=== PATIENT | female | born 1955 | race Caucasian/White ===

== ENCOUNTER → 2016-06-08 | Outpatient (CLI) | payer OTHER ==
[~2016-06-08] MED LIST: CONRAY-43 43% 50ML VIAL (Q9960) As Ordered ONE
--- NOTE | 2016-06-08 11:59 | REP ---
MR ARTHROGRAM RIGHT SHOULDER: TECHNIQUE: Axial T2 fat sat, coronal oblique T1, T2 fat sat, post arthrogram axial T1 fat sat, proton density, coronal oblique T1 fat sat, T2 sat, sagittal oblique T2 fat sat, ABER T1 fat sat. There is a full thickness incomplete tear of the supraspinatus tendon distally with a gap in the tendon approximately 1 cm. Other rotator cuff tendons appear intact. There are mild hypertrophy degenerative changes of acromioclavicular joint. Biceps tendon is within the bicipital groove without significant tenosynovitis. There is no Hill-Sachs deformity. Deltoid muscle demonstrates no abnormal signal. There is increased signal on T2-weighted images in the region of the biceps labral complex and I suspect at least a partial tear at this location. There also appears to be diffuse fraying of the superior labrum. I do not see any other evidence of a labral tear. There is no bone marrow edema or occult fracture. There is a small joint effusion with fluid extending into the subacromial subdeltoid bursae. There is no paralabral cyst. IMPRESSION: Full thickness incomplete tear supraspinatus tear with a gap in the tendon approximately 1 cm. Mild hypertrophic degenerative changes of acromioclavicular joint. Findings suggesting at least a partial tear at the biceps labral complex as well as diffuse fraying of the superior labrum. Signed by Harley Leos MD 06/09/2016 05:11 P
--- NOTE | 2016-06-09 17:20 | REP ---
Procedure: Right shoulder arthrogram The procedure was performed under the direct supervision of Dr. Leos. History: Right shoulder pain The benefits and risks including but not limited to pain, infection, bleeding and anaphylaxis were explained to the patient and informed consent was obtained. Technique: The right glenohumeral joint space was localized using fluoroscopic guidance. The skin was prepped and draped in a sterile fashion. 1% lidocaine was used as a local anesthetic. Using fluoroscopic guidance a 22 gauge spinal needle was inserted and advanced into the joint. 0.5 ml of Conray 43 was injected to verify placement. 11 ml of a solution containing 20 ml of sterile saline and 0.15 ml of ProHance was injected into the joint. The needle was removed and the patient was taken to MRI for postprocedural imaging. The the patient tolerated the procedure well and there were no immediate complications. 1 second of fluoro time was utilized for this procedure. Reviewed by RUDOLPH Aquino 06/08/2016 10:31 ASigned by Harley Leos MD 06/09/2016 05:07 P
== END | disposition home or self-care (01) ==
LOC: M RADPRO 07:05
PROVIDERS: ATTEND Nurse Practitioner Family
DX: M75.81 Other shoulder lesions, right shoulder (principal); M19.011 Primary osteoarthritis, right shoulder; M75.101 Unspecified rotator cuff tear or rupture of right shoulder, not specified as traumatic
CPT/HCPCS: 23350; 73223; 77002; A9576; Q9960

== ENCOUNTER → 2016-08-17 | Outpatient (CLI) | payer OTHER ==
--- NOTE | 2016-08-19 13:39 | SLEEPCENT ---
DATE OF PROCEDURE: 08/17/2016 ORDERED BY: LYNN Calle Nocturnal polysomnography was performed due to concern for the obstructive sleep apnea syndrome in this patient with a history of excessive somnolence and nonrestorative sleep. 8 hours and 22 minutes of data were reviewed. There were 183 minutes of sleep identified. Sleep latency was short at 4 minutes. Rapid eye movement (REM) latency was short at 67 minutes. Sleep architecture showed some fragmentation and prolonged periods of wake. There were 2 REM periods appreciated, however. The sleep efficiency was quite low at 37%. The patient's EKG showed a sinus rhythm with an average heart rate of 75 beats per minute. Rate variability was seen surrounding respiratory events. Rate ranged 62-90 beats per minute. EEG showed normal waveforms for awake and sleep. No focal events were identified. There were 46 respiratory events identified of 10 seconds in duration or greater for an apnea hypopnea index of 15. The events were not staged nor positionally related. Arousals from respiratory events occurred 9.2 times per hour and oxygen desaturations were seen into the 80s. There was also some limb activity identified. 2 trains of 30 events. Limb movement arousal index was 9.8. IMPRESSION: 1. Obstructive sleep apnea syndrome (G47.33). Apnea hypopnea index 15. 2. Periodic limb movement disorder (G47.61). Limb movement arousal index 9.8. RECOMMENDATION: The patient should be encouraged to return to the sleep disorder center for pressure therapy. In the interim, alcohol and sedative avoidance should be practiced and caution exercised during the operation of motor vehicles. Pending response to pressure therapy, interventions to reduce the frequency arousal from limb activity may also be helpful.
== END ==
LOC: M SLEEP 19:20
PROVIDERS: ATTEND Nurse Practitioner Adult Health
DX: G47.30 Sleep apnea, unspecified (principal)

== ENCOUNTER → 2016-09-03 | Outpatient (CLI) | payer OTHER ==
--- NOTE | 2016-09-06 18:51 | SLEEPCENT ---
DATE OF PROCEDURE: 09/03/2016 REFERRING PHYSICIAN: Conchita Lewis Nocturnal polysomnography was performed for the titration of pressure therapy in this patient with obstructive sleep apnea syndrome, apnea-hypopnea index of 15. For testing, the patient was fit with a ResMed Mirage FX nasal mask of standard size, 4 cm of water pressure applied to the circuit and the lights were extinguished. 7 hours and 17 minutes of data were reviewed. There were only 128 minutes of sleep identified. Sleep latency was normal at 6.5 minutes. Rapid eye movement (REM) latency was quite prolonged at 404 minutes. Sleep architecture was initially good, however, the patient experienced a very prolonged period of wake amid the study resulting in a reduced sleep efficiency of 29.7%. The patient's EKG showed a sinus rhythm with an average heart rate of 63 beats per minute. EEG showed reasonably normal waveforms for awake and sleep. Respiratory events were fully palliated with CPAP at a pressure of +8 with which pressure, the patient slept through REM late in the study without respiratory event or oxygen desaturation. There was some significant limb activity despite the limited time in sleep. Limb movement arousal index was increased over the diagnostic night at 19.1. IMPRESSION: 1. Obstructive sleep apnea syndrome (G47.33). 2. Periodic limb movement disorder (G47.61). RECOMMENDATION: Nightly use of pressure therapy at 8 cm of water should be sufficient to address the patient's respiratory events. Interventions to reduce the frequency of arousal from limb activity may also be helpful.
== END ==
LOC: M SLEEP 20:00
PROVIDERS: ATTEND Nurse Practitioner Adult Health
DX: G47.33 Obstructive sleep apnea (adult) (pediatric) (principal)

== ENCOUNTER 2016-12-24 14:27 | Emergency (ER) | payer OTHER ==
[~2016-12-24] VITALS: Ht 157.5 cm; Wt 70.5 kg
[2016-12-24] MEDS ORDERED: TYLE500T78 PO (14:50)
[2016-12-24] MEDS ORDERED: ASPI81TA85 PO (14:50)
[2016-12-24] MEDS ORDERED: TRAZ50TA11 PO (14:52)
[2016-12-24] MEDS ORDERED: CELE20TA PO (14:52)
[2016-12-24 16:23] LABS: BASO # 0.1 10^3/uL (0.0-0.2); BASO % 0.6 % (0.0-1.0); EOS # 0.2 10^3/uL (0.0-0.50); EOS % 2.1 % (0.0-3.0); IMMATURE GRANULOCYTE % 0.4 % (0-0); LYMPH # 2.5 10^3/uL (1.5-4.5); LYMPH % 31.1 % (24.0-44.0); MEAN CORPUSCULAR HEMOGLOBIN 31.1 pg (27.0-33.0); MEAN CORPUSCULAR HGB CONC 34.3 g/dl (32.0-36.5); MEAN CORPUSCULAR VOLUME 90.6 fl (80.0-96.0); MONO # 0.5 10^3/uL (0.0-0.8); MONO % 5.5 % (0.0-5.0); NEUTROPHILS # 4.9 10^3/uL (1.8-7.7); NEUTROPHILS % 60.3 % (36.0-66.0); PLATELET COUNT, AUTOMATED 299 10^3/uL (150-450); RED CELL DISTRIBUTION WIDTH 12.1 % (11.5-14.5); WHITE BLOOD COUNT 8.2 10^3/uL (4.0-10.0)
[2016-12-24 16:41] LABS: ALBUMIN 3.8 GM/DL (3.2-5.2); ALBUMIN/GLOBULIN RATIO 1.09 (1.00-1.93); ALKALINE PHOSPHATASE 78 U/L (45-117); ALT/SGPT 24 U/L (12-78); ANION GAP 5 MEQ/L (8-16); AST/SGOT 12 U/L (7-37); BILIRUBIN,DIRECT < 0.1 MG/DL (0.0-0.2); BILIRUBIN,TOTAL 0.3 MG/DL (0.2-1.0); BLOOD UREA NITROGEN 11 MG/DL (7-18); CALCIUM LEVEL 9.1 MG/DL (8.8-10.2); CARBON DIOXIDE LEVEL 29 MEQ/L (21-32); CHLORIDE LEVEL 104 MEQ/L (98-107); CREATININE FOR GFR 0.66 MG/DL (0.55-1.02); GLOMERULAR FILTRATION RATE > 60.0 (>45); GLUCOSE, FASTING 113 MG/DL (80-110); SODIUM LEVEL 138 MEQ/L (136-145); TOTAL PROTEIN 7.3 GM/DL (6.4-8.2)
[2016-12-24 17:15] VITALS: BP 125/68
--- NOTE | 2016-12-24 18:20 | REPUSA ---
CLINICAL HISTORY: Pelvic pain. TECHNIQUE: Realtime sonographic images were obtained in multiple projections via TA approach. COMMENTS: The uterus is heterogeneous anteverted measuring 6.3 x 2.6 x 4.2 cm. The endometrial stripe is thicke suzi measuring 7 mm. There is no evidence of free fluid within the pelvic cul-de-sac. Both ovaries are free of solid or cystic mass. There is no evidence for abnormal vascularity. IMPRESSION: No acute pelvic pathology. Patient's pain corresponds to air filled bowel. Consider follow-up with CT. Thank you for your kind referral of this patient.
--- NOTE | 2016-12-25 09:30 | ED PDOC ---
Post-Departure Follow-Up pelvic us faxed to dr adams, flora watkins for follow up. Yrn Foster MD Dec 25, 2016 09:30
== END 2016-12-24 19:05 | disposition home or self-care (01) ==
LOC: M ED 14:27
DX: R10.9 Unspecified abdominal pain (principal); Z72.0 Tobacco use

== ENCOUNTER → 2017-04-25 | Outpatient (CLI) | payer OTHER | LOC: M RAD 09:59 | DX: Z12.31 Encounter for screening mammogram for malignant neoplasm of breast (principal) ==

== ENCOUNTER 2017-05-18 07:52 | Day surgery (SDC) | payer OTHER ==
[2017-05-18] MEDS: NS 1,000 ML IV (08:13)
[2017-05-18] MEDS ORDERED: LIDOCAINE 2% INJ 100 MG/5 ML SDV (FOR ANES.) As Ordered (09:25)
[2017-05-18] MEDS ORDERED: PROPOFOL 200 MG/20 ML VIAL As Ordered ×2 (09:25→09:30)
== END 2017-05-18 10:50 | disposition home or self-care (01) ==
LOC: M OPP 07:52
DX: D12.0 Benign neoplasm of cecum (principal); K64.8 Other hemorrhoids; K59.00 Constipation, unspecified; K57.30 Diverticulosis of large intestine without perforation or abscess without bleeding; G47.33 Obstructive sleep apnea (adult) (pediatric); K21.9 Gastro-esophageal reflux disease without esophagitis; F32.9 Major depressive disorder, single episode, unspecified; M17.12 Unilateral primary osteoarthritis, left knee; F41.9 Anxiety disorder, unspecified; Z79.82 Long term (current) use of aspirin; Z79.899 Other long term (current) drug therapy; Z87.891 Personal history of nicotine dependence; Z80.3 Family history of malignant neoplasm of breast; Z80.49 Family history of malignant neoplasm of other genital organs
CPT/HCPCS: 45380